=== PATIENT | male | born 1985 | race Caucasian/White ===

== ENCOUNTER 2017-10-24 00:03 | Emergency (ER) | payer OTHER | END 2017-10-24 00:20 | disposition left against medical advice (07) | LOC: ER 00:19 | DX: Z53.21 Procedure and treatment not carried out due to patient leaving prior to being seen by health care provider (principal) ==

== ENCOUNTER 2020-01-19 00:29 | Emergency (ER) | payer OTHER ==
[~2020-01-19] VITALS: Ht 165.1 cm; Wt 63.5 kg
--- NOTE | 2020-01-19 00:50 | NUR ---
Patient was MSE by Dr Lopes in room 05A.
[2020-01-19] MEDS ORDERED: HYDROCODONE/APAP 5-325MG TABLET PO ONE (01:00)
[2020-01-19] MEDS ORDERED: HYDROCODONE/APAP 5-325MG TABLET ONE (01:04)
--- NOTE | 2020-01-19 01:39 | NUR ---
Patient discharged to home in stable conditIon. Written and verbal after care instructions given. Patient verbalizes understanding of instructions.
[2020-01-19 01:41] VITALS: BP 122/77
== END 2020-01-19 01:43 | disposition home or self-care (01) ==
LOC: ER 00:29
DX: S63.613A Unspecified sprain of left middle finger, initial encounter (principal); Z88.0 Allergy status to penicillin; Z79.899 Other long term (current) drug therapy; X50.1XXA Overexertion from prolonged static or awkward postures, initial encounter; Y93.89 Activity, other specified; Y92.89 Other specified places as the place of occurrence of the external cause; Y99.8 Other external cause status
CPT/HCPCS: 73130; A4663